=== PATIENT | male | born 1935 | race Hispanic/Latino ===

== ENCOUNTER 2017-05-05 13:23 | Inpatient (IN) | payer MEDICARE ==
[~2017-05-05] VITALS: Ht 152.4 cm; Wt 65.8 kg
--- OUTSIDE RECORDS SUMMARY | 2017-05-05 13:25 | XMS REPORT | Summary of Care ---
Author Author Karen Mathew M.A. 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 Unavailable Unavailable Karen Mathew M.A. Unavailable Unavailable MICA CARRILLO MD Unavailable Unavailable Unavailable Unavailable Functional Status Name Dates Details Functional status health issues are not documented Status: Name Dates Details Cognitive status health issues are not documented Status: Problems Name Dates Details CAD (coronary artery disease) (414.00, I25.10) Status: Active Shortness of breath (786.05, R06.02) Status: Active Fatigue (780.79, R53.83) Status: Active CKD (chronic kidney disease) (585.9, N18.9) Status: Active HTN (hypertension) (401.9, I10) Status: Active Abnormal nuclear stress test (794.39, R94.39) Status: Active Medications Name Dates Details Centrum Silver Oral Tablet Active Tylenol Extra Strength 500 MG Oral Tablet * Refills: 0 Active Calcium TABS * Refills: 0 Active Vitamin D3 15348 UNIT Oral Capsule * Refills: 0 Active Lisinopril 5 MG Oral Tablet TAKE 1 TABLET DAILY * Quantity: 90 Refills: 0 ISAIAS TABOR M.D. Active Metoprolol Succinate ER 25 MG Oral Tablet Extended Release 24 Hour TAKE 1/2 TABLET BEDTIME * Quantity: 90 Refills: 0 ISAIAS TABOR M.D. * Start : 28-Jan-2017 Active 90 Tablet Bottle Furosemide 20 MG Oral Tablet TAKE 1 TABLET DAILY. * Quantity: 90 Refills: 0 ISAIAS TABOR M.D. * Start : 28-Jan-2017 Active Atorvastatin Calcium 10 MG Oral Tablet TAKE 1 TABLET DAILY. * Quantity: 90 Refills: 0 ISAIAS TABOR M.D. * Start : 28-Jan-2017 Active Aspirin 81 MG Oral Tablet Delayed Release TAKE 1 TABLET BY MOUTH EVERY DAY * Quantity: 90 Refills: 0 * Start : 03-Apr-2017 Active Aspirin EC Low Dose 81 MG Oral Tablet Delayed Release TAKE 1 TABLET DAILY DIRECTED. * Quantity: 90 Refills: 1 ISAIAS TABOR M.D. * Start : 03-Apr-2017 Active Allergies and Adverse Reactions Name Dates Details aspirin (Allergy) Status: Active Past Medical History Name Dates Details History of chronic kidney disease (V13.09, Z87.448) Status: Resolved History of coronary artery disease (V12.59, Z86.79) Status: Resolved History of hypertension (V12.59, Z86.79) Status: Resolved Procedures Procedure Dates Details XRAY Chest 2 views [id number] Date: 03-Apr-2017 History of hernia repair Completed History of cholecystectomy Completed Immunization Name Dates Details Immunizations not documented Social History Name Dates Details Unknown if ever smoked Vital Signs Date Test Result Details No Known Vitals to report Results Date Description Value Details Results not documented Plan of Care Name Dates Details Planned Observations Planned Goals not documented Planned Encounters Appointment; ISAIAS TABOR M.D. On: 20-May-2017 9:30 Instructions Name Dates Details Instructions not documented Encounters Appointment; ISAIAS TABOR M.D. Encounter Diagnosis: Problem not documented On: 31-Dec-2016 13:00 Appointment; SE, ECHO Encounter Diagnosis: Problem not documented On: 20-Jan-2017 8:30 Appointment; SE, NUCLEAR Encounter Diagnosis: Problem not documented On: 20-Jan-2017 9:00 Appointment; ISAIAS TABOR M.D. Encounter Diagnosis: Problem not documented On: 28-Jan-2017 14:10 Appointment; ISAIAS TABOR M.D. Encounter Diagnosis: Problem not documented On: 03-Apr-2017 9:30
--- OUTSIDE RECORDS SUMMARY | 2017-05-05 13:25 | XMS REPORT ---
Author Author [facility] Address Unknown Phone Unavailable Care Team Providers Care [place] [employer] Name Role Phone Unavailable Unavailable Problems This patient has no known problems. Allergies, Adverse Reactions, Alerts This patient has no known allergies or adverse reactions. Medications This patient has no known medications. Encounters Start Date/Time End Date/Time Encounter Type Admission Type Attending [facility] Care Facility Care Department Encounter ID 2016-09-17 05:53:19 2016-09-17 05:53:19 Emergency [facility] [id number] 2016-09-16 16:52:13 2016-09-16 16:52:13 Emergency [facility] [id number]
[2017-05-05] MEDS ORDERED: TYLENOL WITH C1 EACH PO (14:54)
[2017-05-05] MEDS ORDERED: ATORVASTATIN CA10 MG PO (14:54)
[2017-05-05] MEDS ORDERED: LISINOPRIL2.5 MG PO (14:54)
[2017-05-05 15:33] LABS: BASOPHILS % 0.3 % (0.0-1.0); EOSINOPHILS # (AUTO) 0.3 (0.0-0.4); EOSINOPHILS % 4.1 % (0.0-6.0); HEMATOCRIT 33.5 % (38.2-49.6); HEMOGLOBIN 10.9 g/dL (14.0-18.0); LYMPHOCYTES # (AUTO) 1.4 (1.0-3.2); LYMPHOCYTES % 23.2 % (18.0-39.1); MEAN CORPUSCULAR HGB CONC 32.5 g/dL (31-35); MEAN CORPUSCULAR VOLUME 95.2 fL (81-99); MONOCYTES # (AUTO) 0.5 (0.2-0.8); MONOCYTES % 8.6 % (4.4-11.3); NEUTROPHILS # (AUTO) 3.9 (2.1-6.9); NEUTROPHILS % 63.6 % (38.7-80.0); PLATELET COUNT 152 x10e3/uL (140-360); RED BLOOD COUNT 3.52 x10e6/uL (4.3-5.7); RED CELL DISTRIBUTION WIDTH 14.9 % (11.7-14.4)
[2017-05-05 15:34] LABS: BILIRUBIN,URINE NEGATIVE (NEGATIVE); CLARITY,URINE CLEAR (CLEAR); COLOR,URINE YELLOW (YELLOW); KETONES,URINE NEGATIVE (NEGATIVE); LEUKOCYTE ESTERASE ,URINE NEGATIVE (NEGATIVE); NITRITE,URINE NEGATIVE (NEGATIVE); URINE UROBILINOGEN 0.2 mg/dL (0.2 - 1)
[2017-05-05 15:35] LABS: PROTEIN,URINE DIPSTICK TRACE (NEGATIVE)
[2017-05-05 15:50] LABS: ALBUMIN 3.8 g/dL (3.5-5.0); ALBUMIN/GLOBULIN RATIO 1.1 (0.8-2.0); ANION GAP 11.5 mmol/L (8-16); CALCIUM 8.6 mg/dL (8.4-10.2); CREATININE, SERUM 2.5 mg/dL (0.72-1.25)
[2017-05-05 15:52] LABS: POTASSIUM 6.5 mmol/L (3.5-5.1)
[2017-05-05] MEDS ORDERED: DEXTROSE 50% SYRINGE 50 ML IV STA (15:58)
[2017-05-05] MEDS ORDERED: SODIUM BICARBONATE 8.4% 50 ML VIAL IV STA (15:58)
[2017-05-05] MEDS ORDERED: INSULIN REGULAR, HUMAN 100 UNIT/1 ML 3ML VIAL IV ONE (16:00)
[2017-05-05] MEDS ORDERED: SODIUM CHLORIDE 0.9% 1000ML 1,000 ML IV ONE (16:00)
[2017-05-05] MEDS ORDERED: SOD POLYSTYRENE SULFONATE SUSP 15 GM/60 ML BTL PO ONE (16:00)
[2017-05-05] MEDS ORDERED: CALCIUM GLUCONATE 10% INJ 9.3 MEQ in SODIUM CHLORIDE 0.9% 100 ML 100 ML IV ONE (16:00)
--- NOTE | 2017-05-05 16:00 | Diagnostic Imaging Report ---
PROCEDURE:ABDOMEN ACUTE SERIES W/PA CXR COMPARISON:None. INDICATIONS:constipation, right side abdominal pain FINDINGS: CHEST: Lungs are well-inflated. No consolidation or effusion. Prominence of the inferior aspect of the right hilum/interlobar pulmonary artery Cardiomediastinal silhouette is unremarkable. Midline sternotomy wires. BOWEL PATTERN: Nonobstructive. No air-filled, dilated loops of bowel. Mild amount of retained stool. SOFT TISSUES: Likely prior cholecystectomy. No calcifications project over the renal shadows or expected course of ureters. BONES: Multilevel moderate degenerative disc changes in the lumbosacral spine, with dextroscoliosis. Mild degenerative changes in bilateral hip and sacroiliac joints. CONCLUSION: 1. No acute thoracic abnormality. Prominence of the inferior right hilum/ interlobar pulmonary artery. Adenopathy is a consideration. Contrast-enhanced CT chest may be obtained for further evaluation. 2. Nonobstructive bowel gas pattern. No air-filled, dilated loops of bowel. Mild amount of retained stool. Guillaume Quiroz M.D. Dictated by: Guillaume Quiroz M.D. on 05/05/2017 at 16:01 Electronically approved by: Guillaume Quiroz M.D. on 05/05/2017 at 16:01
[2017-05-05] MEDS ORDERED: TRAMADOL HCL 50 MG TAB PO ONE (16:15)
[2017-05-05] MEDS ORDERED: TRAMADOL HCL 50 MG TAB PO PRN (16:15)
[2017-05-05] MEDS ORDERED: ONDANSETRON HCL INJ 2 MG/ML VIAL IV PRN (16:15)
[2017-05-05] MEDS ORDERED: SODIUM BICARBONATE 8.4% 50 ML VIAL IV SCH (16:15)
[2017-05-05 16:20] LABS: ANION GAP 12.3 mmol/L (8-16); CALCIUM 8.7 mg/dL (8.4-10.2); CREATININE, SERUM 2.53 mg/dL (0.72-1.25)
[2017-05-05 16:23] LABS: POTASSIUM 6.3 mmol/L (3.5-5.1)
[2017-05-05] MEDS ORDERED: SODIUM BICARBONATE 8.4% SYRING 50 ML ONE (17:01)
--- NOTE | 2017-05-05 18:08 | Diagnostic Imaging Report ---
PROCEDURE: CT CHEST WITHOUT CONTRAST CT scan of the chest WITHOUT intravenous contrast, using standard protocol. TECHNIQUE: The chest was scanned utilizing a multidetector helical scanner from the apex to the level of the adrenal glands. No IV contrast was administered due to decreased GFR. Coronal and sagittal multiplanar reformations were obtained. COMPARISON: None. INDICATIONS: trauma to right side, fall 1 week ago FINDINGS: Lines/tubes: None. Lungs and Airways: Linear opacities in the right lower lobe (for example, series 4, images 62 and 81), and right middle lobe (sagittal image 57) consistent with subsegmental atelectasis or scarring. No consolidation, nodules, or masses. Airways are clear, without endobronchial lesions. Pleura: No effusion, or pneumothorax. Bilateral eventration of the hemidiaphragms. Heart and mediastinum: Thyroid is unremarkable. Heart size is normal. No pericardial effusion. Atherosclerotic calcification of the coronary arteries, aortic valve and thoracic aorta. Aorta is non-aneurysmal. Main pulmonary artery is normal in caliber. Lymph nodes: No mediastinal, hilar, or axillary adenopathy. Abdomen: Please see CT abdomen and pelvis performed same date for further detail. Bones: No acute, displaced fracture or dislocation. Multilevel degenerative disc changes in the thoracic spine. Midline sternotomy wires. IMPRESSION: 1. no acute, displaced fracture or dislocation. No pneumothorax. 2. Right middle lobe and right lower lobe subsegmental atelectasis or scarring. No consolidation, nodules, or masses. No pulmonary contusions. Guillaume Quiroz M.D. Dictated by: Guillaume Quiroz M.D. on 05/05/2017 at 18:09 Electronically approved by: Guillaume Quiroz M.D. on 05/05/2017 at 18:09
--- NOTE | 2017-05-05 18:21 | Diagnostic Imaging Report ---
PROCEDURE: CT ABDOMEN AND PELVIS WITHOUT CONTRAST TECHNIQUE: The abdomen and pelvis were scanned utilizing a multidetector helical scanner from the diaphragm to the lesser trochanter after the oral administration of water. No IV contrast was administered due to decreased GFR. Coronal and sagittal multiplanar reformations were obtained. COMPARISON: None. INDICATIONS: TRAUMA, FALL 1 WEEK AGO, RIGHT SIDE PAIN FINDINGS: ABSENCE OF INTRAVENOUS CONTRAST DECREASES SENSITIVITY FOR DETECTION OF FOCAL LESIONS AND VASCULAR PATHOLOGY. LOWER THORAX: Please see chest CT performed same day for further detail. HEPATOBILIARY: Calcified granuloma in hepatic segment VII (series 2 image 43). 1.6 x 1.6 cm relatively well-circumscribed fluid density lesion in hepatic segment V-VIII, consistent with a simple cyst. No other focal lesions. No biliary ductal dilation. The common bile duct measures approximately 6 mm at the clemencia hepatis. Cholecystectomy clips. SPLEEN: No splenomegaly. PANCREAS: No ductal dilation or focal lesion. Pancreatic atrophy, worse in the neck, body, and tail ADRENALS: No adrenal nodules. KIDNEYS/URETERS: No renal or ureteral calculi. No hydronephrosis, hydroureter, or evidence of obstruction. No contour abnormalities. Mild bilateral nonspecific perinephric stranding. PELVIC ORGANS/BLADDER: No focal lesions or wall thickening. The prostate is enlarged and contains dystrophic calcifications. PERITONEUM / RETROPERITONEUM: No free air or fluid. LYMPH NODES: No lymphadenopathy. VESSELS: Tortuous abdominal aorta with mild atherosclerotic calcification. Moderate atherosclerotic calcification of internal iliac arteries and femoral arteries and branches in the upper legs. GI TRACT: No bowel dilation or evidence of obstruction. No pericolonic inflammatory changes. Appendix is well identified and normal in caliber. Stomach is unremarkable. BONES AND SOFT TISSUES: No acute, displaced fracture or dislocation. Multilevel degenerative disc changes in the lumbosacral spine with S-shaped scoliosis of the thoracolumbar spine. L5 right transverse process sacral pseudoarthrosis. No lytic or blastic lesions. Soft tissues are grossly unremarkable. IMPRESSION: 1. No acute, displaced fracture or dislocation. No evidence of bowel or solid organ injury in the abdomen or pelvis. 2. Enlarged prostate, likely due to BPH. Guillaume Quiroz M.D. Dictated by: Guillaume Quiroz M.D. on 05/05/2017 at 18:21 Electronically approved by: Guillaume Quiroz M.D. on 05/05/2017 at 18:21
[2017-05-06 05:40] LABS: BASOPHILS % 0.6 % (0.0-1.0); EOSINOPHILS # (AUTO) 0.2 (0.0-0.4); EOSINOPHILS % 3.3 % (0.0-6.0); HEMATOCRIT 34.8 % (38.2-49.6); HEMOGLOBIN 11.2 g/dL (14.0-18.0); LYMPHOCYTES # (AUTO) 1.1 (1.0-3.2); LYMPHOCYTES % 16.8 % (18.0-39.1); MEAN CORPUSCULAR HEMOGLOBIN 30.8 pg (28-32); MEAN CORPUSCULAR HGB CONC 32.2 g/dL (31-35); MEAN CORPUSCULAR VOLUME 95.6 fL (81-99); MONOCYTES # (AUTO) 0.6 (0.2-0.8); MONOCYTES % 9.2 % (4.4-11.3); NEUTROPHILS # (AUTO) 4.6 (2.1-6.9); NEUTROPHILS % 69.6 % (38.7-80.0); PLATELET COUNT 115 x10e3/uL (140-360); RED BLOOD COUNT 3.64 x10e6/uL (4.3-5.7); RED CELL DISTRIBUTION WIDTH 14.6 % (11.7-14.4)
[2017-05-06 06:04] LABS: ANION GAP 12.4 mmol/L (8-16); CALCIUM 8.9 mg/dL (8.4-10.2); CREATININE, SERUM 2.3 mg/dL (0.72-1.25); POTASSIUM 5.4 mmol/L (3.5-5.1)
[2017-05-06] MEDS ORDERED: LIDOCAINE 5% PATCH TP ONE ×2 (09:00→10:00)
--- NOTE | 2017-05-06 09:22 | History and Physical ---
Mr. Ambrocio is an 82-year-old man with a history of coronary artery disease, hypertension, hyperlipidemia, chronic kidney disease, sent to the emergency room because a week ago he fell, and he was complaining of severe pain in the right upper quadrant. X-ray was negative for rib fractures, but the patient had complaint of severe pain. He could hardly move. He was sent to the emergency room. When got to the emergency room, he was found to have elevated creatinine and hypokalemia. He was admitted for further workup. PAST MEDICAL HISTORY: Coronary artery disease, hypertension, hyperlipidemia. ALLERGIES: NO KNOWN DRUG ALLERGIES. SOCIAL HISTORY: He does not smoke. He does not drink. He lives at home with his family. SURGICAL HISTORY: He had a CABG, cholecystectomy and hernia repair. PHYSICAL EXAMINATION GENERAL: Today, he is awake and alert. VITALS: Temperature is 98, blood pressure 141/76. HEART: Regular rate. LUNGS: Clear to auscultation. ABDOMEN: Distended and soft. LOWER EXTREMITIES: No edema. No erythema. BLOOD WORK: White count 6.6, hemoglobin 11.2, hematocrit 34.8. Yesterday, potassium was 6.3 and today is 5.4. Creatinine 2.53 yesterday and 2.3 today. Blood sugar is 92. Urine showed no white blood cells. He had acute abdominal series done that showed no acute thoracic abnormality. Nonobstructive bowel gas pattern. The patient went for a chest CT that showed no acute displaced fracture or dislocation. No pneumothorax. Right middle lobe or right lower lobe atelectasis was seen. No consolidation. No pulmonary contusion. Abdominal and pelvic CT showed no acute displaced fractures. No evidence of bowel or solid organ injury in the abdomen and pelvis. Large prostate. ASSESSMENT AND PLAN: Admit the patient to the hospital. Monitor potassium. Monitor renal function. Nephrology consult. Continue tramadol for pain. Continue home medications. All of this was discussed with the patient. All questions were answered to satisfaction. Job#: [id number] JOYCELYN
--- NOTE | 2017-05-06 12:31 | Consultation ---
DATE OF CONSULTATION: May 06, 2017 NEPHROLOGY CONSULTATION REASON FOR CONSULTATION: Hyperkalemia and OLIVIA on CKD. REASON FOR ADMISSION: Right-sided pain status post fall. HISTORY OF PRESENTING ILLNESS: Mr. Ambrocio is an 82-year-old male with a past medical history significant for CAD, hypertension, hyperlipidemia, CKD but baseline creatinine not known per patient, who was sent to the emergency room because he was complaining of severe pain in his right upper quadrant and lower quadrant, which started about a week ago after a fall. He had x-rays done as outpatient which were negative for rib fractures, but the pain worsened to the point where he was unable to move, and he was sent to the ER. In the ER, his labs were significant for OLIVIA with a creatinine of 2.5 and hyperkalemia with potassium elevated to 6.3. He was given calcium gluconate, Kayexalate, insulin, and dextrose, and his potassium has come down to 5.4 this morning. He states he has been having some frequency of urination and burning of urination. He has been going to the restroom 4 times this morning per nursing. He had a CT scan done of his thorax, abdomen and pelvis with no significant findings except atelectasis on the right side. The gallbladder appeared normal. Calcified granuloma in the liver. Kidneys appeared fine with mild perinephric stranding, which could be nonspecific. Bladder appeared to be within normal limits. However, the prostate was enlarged with some calcifications noted. No rib fractures or pulmonary contusions noted. We have been consulted to assist with management of his OLIVIA on CKD and hyperkalemia as well. PAST MEDICAL HISTORY: CAD, hypertension, hyperlipidemia, and CKD. The patient denies any history of diabetes. Does not know his baseline creatinine. PAST SURGICAL HISTORY: CABG, cholecystectomy, hernia repair. SOCIAL HISTORY: Nonsmoker, nonalcoholic. No drug abuse. ALLERGIES: NO KNOWN DRUG ALLERGIES. MEDICATIONS: Reviewed in electronic medical record. PHYSICAL EXAMINATION GENERAL: Resting comfortably in bed. VITAL SIGNS: Temperature 97.5 degrees Fahrenheit, pulse rate running low normal around 51 per minute, respiratory rate is 18 per minute, blood pressure 126/59. HEENT: Normocephalic, atraumatic. Moist mucous membranes. RESPIRATORY: Decreased bilateral basal breath sounds, otherwise clear. CARDIOVASCULAR: Regular rate and rhythm. No murmur appreciated. GASTROINTESTINAL: Abdomen is soft. Mild tenderness to the right lower quadrant. Otherwise, within normal. GENITOURINARY: No Li present. MUSCULOSKELETAL: No edema. LABORATORY DATA: Sodium 140, potassium 5.4 from 6.3 yesterday, chloride 115 from 114 yesterday, bicarb 18, BUN 31 from 34 yesterday, creatinine 2.3 from 2.5 yesterday. Troponin 0.017. Urinalysis with trace protein and trace blood but no RBCs. Specific gravity 1.015 and pH 5. WBC count 6.6, hemoglobin 11.2, platelet count 115. Albumin 3.8. AST and ALT within normal limits. IMAGING: As mentioned in HPI. IMPRESSION AND PLAN 1. Acute kidney injury on chronic kidney disease. Patient's baseline creatinine is not known. May have chronic kidney disease stage 2 to 3 based on current creatinine. The patient may have hypertensive nephropathy. Kidneys appear to be normal on the CT scan. However, will rule out obstruction, which can lead to worsening kidney failure given BPH and hyperkalemia with nonanion gap metabolic acidosis. Will discuss with RN and will perform a postvoid bladder scan and monitor. 2. Hyperkalemia, likely related to obstruction given nonangion gap metabolic acidosis with hyperchloremia. This is indicative usually of obstruction, and this could be related to the large prostate seen on the CT scan. Will get a postvoid bladder scan. 3. Hypertension. Currently, blood pressure is within normal limits. Not on any antihypertensives. Monitor. 4. Hyperchloremic, nonangion gap metabolic acidosis. As mentioned above, will rule out obstruction. No need for bicarbonate at this time. Will monitor. 5. Right-sided upper and lower quadrant pain, unclear etiology, as per primary care. 6. Hyperlipidemia, currently on a statin. Will get a CK level. Thank you very much, Dr. Serna, for this consult. I will be happy to follow this patient with you. Job#: [id number]
[2017-05-06 14:40] LABS: CREATININE,URINE RANDOM 79.36 mg/dL (63-166)
[2017-05-06 16:29] LABS: ANION GAP 11.8 mmol/L (8-16); CALCIUM 8.1 mg/dL (8.4-10.2); CREATININE, SERUM 2.16 mg/dL (0.72-1.25); POTASSIUM 4.8 mmol/L (3.5-5.1)
[2017-05-06 16:48] VITALS: BP 142/67
[2017-05-06 17:15] VITALS: BP 142/67
[2017-05-06] MEDS ORDERED: SIMETHICONE 80 MG CHEW PO PRN (18:30)
[2017-05-06 20:00] VITALS: BP 128/60
[2017-05-06 22:12] VITALS: BP 128/60
[2017-05-07 00:22] VITALS: BP 120/62
[2017-05-07 04:00] VITALS: BP 118/64
[2017-05-07 07:09] LABS: BASOPHILS % 0.4 % (0.0-1.0); EOSINOPHILS # (AUTO) 0.3 (0.0-0.4); HEMATOCRIT 31.1 % (38.2-49.6); HEMOGLOBIN 10.3 g/dL (14.0-18.0); LYMPHOCYTES # (AUTO) 1.2 (1.0-3.2); LYMPHOCYTES % 25.6 % (18.0-39.1); MEAN CORPUSCULAR HEMOGLOBIN 31.6 pg (28-32); MEAN CORPUSCULAR HGB CONC 33.1 g/dL (31-35); MEAN CORPUSCULAR VOLUME 95.4 fL (81-99); MONOCYTES # (AUTO) 0.5 (0.2-0.8); NEUTROPHILS # (AUTO) 2.8 (2.1-6.9); NEUTROPHILS % 57.8 % (38.7-80.0); PLATELET COUNT 128 x10e3/uL (140-360); RED BLOOD COUNT 3.26 x10e6/uL (4.3-5.7); RED CELL DISTRIBUTION WIDTH 14.6 % (11.7-14.4)
[2017-05-07 07:32] LABS: ANION GAP 11.5 mmol/L (8-16); CREATININE, SERUM 2.15 mg/dL (0.72-1.25); POTASSIUM 4.5 mmol/L (3.5-5.1)
[2017-05-07 07:46] LABS: MAGNESIUM 1.3 MG/DL (1.3-2.1); PHOSPHORUS 3.6 MG/DL (2.3-4.7)
[2017-05-07 08:00] VITALS: BP 99/56
[2017-05-07] MEDS ORDERED: ACETAMINOPHEN 325 MG TAB PO PRN (08:30)
[2017-05-07] MEDS ORDERED: SODIUM CHLORIDE 0.9% 500ML 500 ML IV ONE (09:00)
[2017-05-07 10:28] VITALS: BP 99/56
--- NOTE | 2017-05-07 10:49 | Discharge Summary ---
Mr. Ambrocio is an 82-year-old man with a history of coronary artery disease, hypertension, hyperlipidemia, chronic kidney disease. He came to the emergency room because he was complaining of severe right upper quadrant pain after he fell a week ago. When he came to the emergency room, the creatinine was very elevated. The potassium was high, so the patient was admitted to the hospital. He has been evaluated by it systems analyst. The potassium now is normal. The blood pressure is currently low, so we are going to give him some fluids. If the blood pressure is stable this afternoon and if it is okay with the it systems analyst, he is going to be discharged home. On physical examination, he is awake and alert. Temperature is 96.4. Blood pressure is 99/56. The heart is regular rate. Lungs are clear to auscultation. Abdomen is distended and soft. On the blood work, white count is 4.80, hemoglobin 10.3, hematocrit 31.1. Sodium 138, potassium 4.5, creatinine 2.15. Urine did not show any white blood cells. Abdominal and pelvic CT showed no acute fracture, enlarged prostate. Chest CT showed no acute displaced fracture or dislocation. Some atelectasis with no consolidation. DISCHARGE DIAGNOSES 1. [id number] renal failure. 2. Hypokalemia. 3. Right upper quadrant pain status post fall. 4. Hypertension. 5. Coronary artery disease, status post coronary artery bypass graft. 6. Hyperlipidemia. PLAN: At the present time, we are going to give him some fluids. Monitor blood pressure. The potassium is normal. The patient is feeling fine. He wants to go home. If he is stable this afternoon and if it is okay with the it systems analyst, he is going to be discharged home and follow up with me as an outpatient. All of this was discussed with the patient, and all questions were answered to his satisfaction. Please see home medication reconciliation list. MARY LOU TRUJILLO MD Job#: [id number]
[2017-05-07 12:11] VITALS: BP 115/59
[2017-05-07 16:43] VITALS: BP 126/68
== END 2017-05-07 17:15 | disposition home or self-care (01) | DRG 683 ==
LOC: ER 13:23 → ERHOLD 16:30 → MED/SURG 05-06 14:34
PROVIDERS: ADMIT Internal Medicine; ATTEND Internal Medicine
DX: N17.9 Acute kidney failure, unspecified (principal); E87.2 Acidosis; E87.5 Hyperkalemia; E87.8 Other disorders of electrolyte and fluid balance, not elsewhere classified; J98.11 Atelectasis; E86.0 Dehydration; K59.00 Constipation, unspecified; S20.311A Abrasion of right front wall of thorax, initial encounter; W18.30XA Fall on same level, unspecified, initial encounter; Y93.89 Activity, other specified; I25.10 Atherosclerotic heart disease of native coronary artery without angina pectoris; E78.5 Hyperlipidemia, unspecified; I12.9 Hypertensive chronic kidney disease with stage 1 through stage 4 chronic kidney disease, or unspecified chronic kidney disease; N18.9 Chronic kidney disease, unspecified; R10.11 Right upper quadrant pain
CPT/HCPCS: 36415; 71250; 74022; 74176; 80048; 80053; 81001; 82550; 82570; 82948; 83735; 83970; 84100; 84300; 84484; 85025; 93005; 99284; J0610; J7030; J7040; J7799

== ENCOUNTER 2018-09-20 10:42 | Emergency (ER) | payer MEDICARE, OTHER ==
[~2018-09-20] VITALS: Ht 304.8 cm; Wt 65.8 kg
[~2018-09-20 10:42] MED LIST: ATORVASTATIN CA10 MG PO; LISINOPRIL2.5 MG PO; TYLENOL WITH C1 EACH PO
--- OUTSIDE RECORDS SUMMARY | 2018-09-20 10:44 | XMS REPORT | Summary of Care ---
Author Author CHELSIE ORTEGA M.D. 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 Unavailable Unavailable CHELSIE ORTEGA M.D. Unavailable Unavailable MICA CARRILLO MD Unavailable Unavailable Unavailable Unavailable Functional Status Name Dates Details Functional status health issues are not documented Status: Name Dates Details Cognitive status health issues are not documented Status: Problems Name Dates Details Abnormal nuclear stress test (794.39, R94.39) Status: Active CAD (coronary artery disease) (414.00, I25.10) Status: Active CKD (chronic kidney disease) (585.9, N18.9) Status: Active Fatigue (780.79, R53.83) Status: Active HTN (hypertension) (401.9, I10) Status: Active Shortness of breath (786.05, R06.02) Status: Active Hyperlipidemia (272.4, E78.5) Status: Active Lumbar spondylosis (721.3, M47.816) Status: Active Sciatica of left side (724.3, M54.32) Status: Active Lumbar spondylosis (721.3, M47.816) Status: Active Sciatica of left side (724.3, M54.32) Status: Active Medications Name Dates Details Centrum Silver Oral Tablet Active Tylenol Extra Strength 500 MG Oral Tablet * Refills: 0 Active Calcium TABS * Refills: 0 Active Vitamin D3 06846 UNIT Oral Capsule * Refills: 0 Active Metoprolol Succinate ER 25 MG Oral [...] Refills: 0 * Start : 03-Apr-2017 Active Atorvastatin Calcium 10 MG Oral Tablet TAKE 1 TABLET AT BEDTIME. * Quantity: 30 Refills: 1 ISAIAS TABOR M.D. * Start : 20-May-2017 Active MethylPREDNISolone 4 MG Oral Tablet Therapy Pack TAKE DIRECTED ON PATIENT INSTRUCTION CARD.; Qty: 1 X 21 Tablet Disp Pack * Quantity: 1 Refills: 0 CHELSIE ORTEGA M.D. * Start : 05-Nov-2017 Active 21 Tablet Pack Allergies and Adverse Reactions Name Dates Details aspirin (Allergy) Status: Active Past Medical History Name Dates Details History of chronic kidney disease (V13.09, Z87.448) Status: Resolved History of coronary artery disease (V12.59, Z86.79) Status: Resolved History of hypertension (V12.59, Z86.79) Status: Resolved Procedures Procedure Dates Details MRI Spine lumbar wo contrast [id number] Date: 05-Nov-2017 History of Hernia repair Completed History of Cholecystectomy Completed History of Heart surgery Completed Immunization Name Dates Details Immunizations not documented Social History Name Dates Details Unknown if ever smoked Vital Signs Date Test Result Details No Known Vitals to report Results Date Description Value Details [id number] [U] XRAY HIP UNILATERAL MIN 2 VWS LEFT [id number] XR HIP UNILATERAL MIN 2 VWS LEFT Images acquired, not reported on this accession number. [id number] [U] XRAY SPINE LUMBOSACRAL 2 OR 3 VWS [id number] XR SPINE LUMBOSACRAL 2 OR 3 VWS Images acquired, not reported on this accession number. Plan of Care Name Dates Details Planned Observations Planned Goals not documented Planned Encounters Physical Therapy Referral Ortho Interventions Provided Medication Changes* MethylPREDNISolone 4 MG Oral Tablet Therapy Pack - Start Labs/Procedures/Imaging* MRI Spine lumbar wo contrast [id number]; To Be Done: 05 Nov 2017 * [U] XRAY HIP UNILATERAL MIN 2 VWS LEFT [id number]; Done: 05 Nov 2017 * [U] XRAY SPINE LUMBOSACRAL 2 OR 3 VWS 18455; Done: 05 Nov 2017 Plan* Patient Education/Instructions: * Patient Education Provided * Reassurance * Counseling Provided. * Orders: * Physical Therapy * MRI Scan * Follow Up: * Return to the clinic after imaging study completed or as needed. * Lumbar Spondylosis * - No oral NSAIDS due to risk of kidney failure * - Recommend topical NSAIDS * - PT ordered * - MRI ordered as XR limited due to presence of scoliosis * - Will need follow up after MRI completed. Instructions Name Dates Details Instructions not documented [...] Diagnosis: Problem not documented On: 03-Apr-2017 9:30 Appointment; ISAIAS TABOR M.D. Encounter Diagnosis: Problem not documented On: 20-May-2017 9:30 Appointment; ISAIAS TABOR M.D. Encounter Diagnosis: Problem not documented On: 21-Aug-2017 10:00 Appointment; CHELSIE ORTEGA M.D. Encounter Diagnosis: Problem not documented On: 01-Oct-2017 8:45 Appointment; CHELSIE ORTEGA M.D. Encounter Diagnosis: Problem not documented On: 05-Nov-2017 9:15
[2018-09-20 11:29] LABS: BASOPHILS % 0.6 % (0.0-1.0); EOSINOPHILS # (AUTO) 0.3 (0.0-0.4); EOSINOPHILS % 5.1 % (0.0-6.0); HEMATOCRIT 37.6 % (38.2-49.6); HEMOGLOBIN 11.9 g/dL (14.0-18.0); LYMPHOCYTES # (AUTO) 1.4 (1.0-3.2); LYMPHOCYTES % 26.3 % (18.0-39.1); MEAN CORPUSCULAR HEMOGLOBIN 31.2 pg (28-32); MEAN CORPUSCULAR HGB CONC 31.6 g/dL (31-35); MEAN CORPUSCULAR VOLUME 98.4 fL (81-99); MONOCYTES # (AUTO) 0.4 (0.2-0.8); MONOCYTES % 7.4 % (4.4-11.3); NEUTROPHILS # (AUTO) 3.2 (2.1-6.9); NEUTROPHILS % 60.4 % (38.7-80.0); PLATELET COUNT 127 x10e3/uL (140-360); RED BLOOD COUNT 3.82 x10e6/uL (4.3-5.7)
[2018-09-20 11:31] LABS: BILIRUBIN,URINE NEGATIVE (NEGATIVE); CLARITY,URINE SL CLOUDY (CLEAR); COLOR,URINE YELLOW (YELLOW); KETONES,URINE NEGATIVE (NEGATIVE); LEUKOCYTE ESTERASE ,URINE NEGATIVE (NEGATIVE); NITRITE,URINE NEGATIVE (NEGATIVE); PROTEIN,URINE DIPSTICK 2+ (NEGATIVE); URINE UROBILINOGEN 0.2 mg/dL (0.2 - 1)
[2018-09-20 11:43] LABS: INR 0.98; PROTHROMBIN TIME 13.5 seconds (11.9-14.5)
[2018-09-20 11:44] LABS: PARTIAL THROMBOPLASTIN TIME 33.2 seconds (23.8-35.5)
--- NOTE | 2018-09-20 11:44 | Diagnostic Imaging Report ---
EXAM: CT Abdomen and Pelvis WITHOUT intravenous contrast INDICATION: Flank pain COMPARISON: None. TECHNIQUE: Abdomen and pelvis were scanned utilizing a multidetector helical scanner from the lung base to the pubic symphysis without administration of IV contrast. Coronal and sagittal reformations were obtained. IV CONTRAST: None ORAL CONTRAST: None COMPLICATIONS: None RADIATION DOSE: Total DLP: 288.8 mGy*cm Dose modulation, iterative reconstruction, and/or weight based adjustment of the mA/kV was utilized to reduce the radiation dose to as low as reasonably achievable. FINDINGS: LOWER THORAX: Mild bibasilar subsegmental atelectasis. HEPATOBILIARY: Right hepatic 1.8 cm cystic structure, possibly representing a small intrahepatic gallbladder. No other focal liver lesions. SPLEEN: No splenomegaly. PANCREAS: No focal masses or ductal dilatation. ADRENALS: No adrenal nodules. KIDNEYS/URETERS: No renal calculi or hydronephrosis. PELVIC ORGANS/BLADDER: Punctate calcification along the left anterior wall of the bladder. Prostatomegaly to 5.5 cm with coarse internal calcifications. PERITONEUM / RETROPERITONEUM: No free air or fluid. LYMPH NODES: No lymphadenopathy. VESSELS: Atherosclerotic calcifications of the tortuous abdominal aorta and major branches. GI TRACT: No abnormal bowel wall thickening. No bowel obstruction. Normal appendix. BONES AND SOFT TISSUES: No acute osseous injury. No suspicious lytic or blastic lesions. Diffuse degenerative changes of the visualized spine. IMPRESSION: No acute findings in the abdomen or pelvis. Specifically, no renal calculi or hydronephrosis. Prostatomegaly with coarse internal calcifications. Signed by: Bert Garcia MD on 09/20/2018 11:41 AM
[2018-09-20 11:50] LABS: BACTERIA,URINE MANY /HPF; EPITHELIAL CELLS,URINE MODERATE /LPF
[2018-09-20 11:51] LABS: AMORPHOUS SEDIMENT,URINE FEW (FEW); HYALINE CASTS 0-1 (0-1)
[2018-09-20 11:53] LABS: ALBUMIN 3.7 g/dL (3.5-5.0); ALBUMIN/GLOBULIN RATIO 1.1 (0.8-2.0); ANION GAP 11.8 mmol/L (8-16); CALCIUM 8.7 mg/dL (8.4-10.2); CREATININE, SERUM 2.67 mg/dL (0.72-1.25); POTASSIUM 4.8 mmol/L (3.5-5.1)
[2018-09-20] MEDS ORDERED: CEFTRIAXONE SOD 1 GM/NS 50 ML 50 ML IV ONE (12:45)
[2018-09-20 12:52] VITALS: BP 110/68
[2018-09-20] MEDS ORDERED: CEFTRIAXONE SOD 1 GM VIAL IM ONE (13:00)
[2018-09-20] MEDS ORDERED: LIDOCAINE HCL 2% LOCAL 20 ML VIAL INJ ONE (13:15)
== END 2018-09-20 13:40 | disposition home or self-care (01) ==
LOC: ER 10:42
DX: R10.31 Right lower quadrant pain (principal); N30.91 Cystitis, unspecified with hematuria
CPT/HCPCS: 36415; 74176; 80053; 81001; 85025; 85610; 85730; 99284; J0696; J2001